=== PATIENT | female | born 1985 | race Caucasian/White ===

== ENCOUNTER 2017-07-29 07:26 | Emergency (ER) ==
[2017-07-29 07:31] VITALS: BP 146/95; TEMP 98.6; BMI 36.7
--- NOTE | 2017-07-29 09:03 | ED.PDOC ---
General ED Provider: Dr. ALBERT GRANGER Chief Complaint: Urinary Problem Stated Complaint: urinary symp Time Seen by Physician: 07:30 (seen with nursing staff at all times ) Mode of Arrival: Walk-In Information Source: Patient Exam Limitations: No limitations Primary Care Provider: MARIE GRAY Nursing and Triage Documentation Reviewed and Agree: Yes Reviewed sepsis parameters & appropriate labs ordered?: Yes System Inflammatory Response Syndrome: Not Applicable Sepsis Protocol: For patient's 13 years and over: Temp is 96.8 and below OR 101 and greater Pulse >90 BPM Resp >20/minute Acutely Altered Mental Status Are patient's symptoms suggestive of a new infection, such as: -Pneumonia -Skin, Soft Tissue -Endocarditis -UTI -Bone, Joint Infection -Implantable Device -Acute Abdominal Infection -Wound Infection -Meningitis -Blood Stream Catheter Infection -Unknown System Inflammatory Response Syndrome: Not Applicable Complaint Exam - Complaint/Exam Patient Complains of: Reports: Dysuria Onset/Duration: 2 days on her period Symptoms Are: Resolved Timing: Intermittent Episodes of Voiding Over Last 12 Hours: 3 Initial Severity: Moderate Current Severity: None Location of Pain: Reports: Suprapubic Character: Reports: Dull, Dark urine Aggravating: Reports: Urination Alleviating: Reports: None Associated Signs and Symptoms: Reports: Dysuria. Denies: Diaphoresis, Back pain , Fever, Hematuria, Constipation, Blood in stool, Rectal pain, Appetite change, Nausea, Vomiting, Decreased urine output, Increased urine frequency, Increased thirst, Decreased activity, Lethargy, Abdominal Pain, Bubble bath use, Vaginal bleeding, Vaginal discharge, Genital swelling, Genital blisters, Retained foreign body Ectopic Risk Factors: Reports: None Ovarian Torsion Risk Factors: Reports: Reproductive age Differential Diagnoses: UTI Review of Systems - Review Of Systems Constitutional: Reports: No symptoms Eyes: Reports: No symptoms Ears, Nose, Mouth, Throat: Reports: No symptoms Respiratory: Reports: No symptoms Cardiac: Reports: No symptoms GI: Reports: No symptoms : Reports: Dysuria, Frequency Musculoskeletal: Reports: No symptoms Skin: Reports: No symptoms Neurological: Reports: No symptoms Endocrine: Reports: No symptoms Hematologic/Lymphatic: Reports: No symptoms All Other Systems: Reviewed and Negative Past Medical History - Past Medical History Previously Healthy: Yes Endocrine: Reports: None Cardiovascular: Reports: None Respiratory: Reports: None Hematological: Reports: None Gastrointestinal: Reports: None Genitourinary: Reports: Other (Acute renal failure from Ibuprufen. 3 year ago) Neuro/Psych: Reports: Seizure Musculoskeletal: Reports: None Cancer: Reports: None Last Menstrual Period: end june - Surgical History General Surgical History: Reports: Tubal ligation (2010), Tonsillectomy (1989) - Family History Family History: Reports: None - Social History Smoking Status: Current every day smoker, Heavy tobacco smoker Hx Substance Use: No Alcohol Screening: None Physical Exam - Physical Exam Appearance: Well-appearing, No pain distress, Well-nourished Eyes: GOLDEN, EOMI, Conjunctiva clear ENT: Ears normal, Nose normal, Oropharynx normal Respiratory: Airway patent, Breath sounds clear, Breath sounds equal, Respirations nonlabored Cardiovascular: RRR, Pulses normal, No rub, No murmur GI/: Soft, Nontender, No masses, Bowel sounds normal, No Organomegaly Musculoskeletal: Normal strength, ROM intact, No edema, No calf tenderness Skin: Warm, Dry, Normal color Neurological: Sensation intact, Motor intact, Reflexes intact, Cranial nerves intact, Alert, Oriented Psychiatric: Affect appropriate, Mood appropriate Critical Care Note - Critical Care Note Total Time (mins): 0 Course - Course Hematology/Chemistry: 07/29/17 08:20 07/29/17 08:20 Orders, Labs, Meds: Lab Review 07/29/17 07/29/17 07/29/17 07:50 08:20 08:20 WBC 7.38 RBC 4.85 Hgb 13.0 Hct 39.3 MCV 81.0 MCH 26.8 L MCHC 33.1 RDW Coeff of Yennifer 12.9 Plt Count 251 Immature Gran % (Auto) 0.4 Neut % (Auto) 71.3 Lymph % (Auto) 22.6 [place] % (Auto) 4.6 Eos % (Auto) 0.8 Baso % (Auto) 0.3 Immature Gran # (Auto) 0.0 Neut # 5.3 Lymph # 1.7 [place]ard # 0.3 L Eos # 0.1 Baso # 0.0 Sodium 136 Potassium 3.5 Chloride 98 Carbon Dioxide 27 Anion Gap 14.5 BUN 11 Creatinine 0.80 Estimated GFR (MDRD) 83.00 BUN/Creatinine Ratio 13.75 Glucose 92 Calcium 9.7 Total Bilirubin 0.9 AST 159 H ALT 265 H Alkaline Phosphatase 138 H Total Protein 7.7 Albumin 3.7 Globulin 4.0 Albumin/Globulin Ratio 0.93 Urine Color Yellow Urine Clarity Clear Urine pH 6.5 Ur Specific Sunshine 1.015 Urine Protein 2+ Urine Glucose (UA) Negative Urine Ketones Trace Urine Blood 2+ Urine Nitrite Negative Urine Bilirubin 1+ Urine Urobilinogen 1.0 Ur Leukocyte Esterase 1+ Urine Microscopic RBC 10-20 Urine Microscopic WBC 5-10 Ur Squamous Epith Cells 20-30 Urine Bacteria 1+ Urine Mucus Trace Orders Category Date Time Status CBC W/ AUTO DIFF Stat LAB 07/29/17 08:20 Completed COMPREHENSIVE METABOLIC PANEL Stat LAB 07/29/17 08:20 Completed URINALYSIS C & S IF INDICATED Stat LAB 07/29/17 07:50 Completed URINE CULTURE Stat LAB 07/29/17 07:50 Received Vital Signs: Temp Pulse Resp BP Pulse Ox 07/29/17 07:26 98.6 F 123 H 20 146/95 H 96 Departure - Departure Time of Disposition: 09:03 (wit nuse at beside we discussed epaet UA) Disposition: HOME SELF-CARE Discharge Problem: Urinary symptoms, Abnormal liver function test Instructions: Urinary Tract Infection in Women (ED) Condition: Good Pt referred to PMD for follow-up: Yes Additional Instructions: Please call your Family Physician as soon as possible to schedule a follow-up appointment. your liver function tests are abnormal please see your doctor for follow up a hepatitis screen has been ordered please get results from your doctor Allergies/Adverse Reactions: Allergies azithromycin [From Zithromax] Adverse Reaction (Verified 07/29/17 07:34) cefaclor [From Ceclor] Adverse Reaction (Verified 07/29/17 07:34) codeine [From Tylenol-Codeine #3] Adverse Reaction (Verified 07/29/17 07:34) ketorolac [From Toradol] Adverse Reaction (Verified 07/29/17 07:34) tramadol Adverse Reaction (Verified 07/29/17 07:34) Home Medications: Ambulatory Orders Gabapentin 300 mg PO TID 07/29/17 Naproxen 500 mg PO BID 07/29/17
== END 2017-07-29 09:34 | disposition home or self-care (01) ==
LOC: ED 07:26
DX: R74.8 Abnormal levels of other serum enzymes (principal); R30.0 Dysuria; R10.33 Periumbilical pain; F17.210 Nicotine dependence, cigarettes, uncomplicated
CPT/HCPCS: 36415; 80053; 80074; 81001; 85025; 87086; 99283

== ENCOUNTER 2017-12-30 13:43 | Emergency (ER) | payer MEDICAID, OTHER ==
[2017-12-30 13:55] VITALS: BP 120/60; TEMP 97.5; BMI 32.8
--- NOTE | 2017-12-30 14:15 | ED.PDOC ---
General ED Provider: Dr. ALBERT GRANGER Chief Complaint: Weakness Mode of Arrival: Walk-In Information Source: Patient Primary Care Provider: MARIE GRAY Sepsis Protocol: For patient's 13 years and over: Temp is 96.8 and below OR 101 and greater Pulse >90 BPM Resp >20/minute Acutely Altered Mental Status Are patient's symptoms suggestive of a new infection, such as: -Pneumonia -Skin, Soft Tissue -Endocarditis -UTI -Bone, Joint Infection -Implantable Device -Acute Abdominal Infection -Wound Infection -Meningitis -Blood Stream Catheter Infection -Unknown Past Medical History - Past Medical History Previously Healthy: Yes Endocrine: Reports: None Cardiovascular: Reports: None Respiratory: Reports: None Hematological: Reports: None Gastrointestinal: Reports: None Genitourinary: Reports: Other (Acute renal failure from Ibuprufen. 3 year ago) Neuro/Psych: Reports: Seizure Musculoskeletal: Reports: None Cancer: Reports: None Last Menstrual Period: 3 WEEKS - Surgical History General Surgical History: Reports: Tubal ligation (2010), Tonsillectomy (1989) - Family History Family History: Reports: None - Social History Smoking Status: Current every day smoker, Light tobacco smoker Hx Substance Use: No Alcohol Screening: None - Immunizations Tetanus Shot up to Date: Yes Course - Course Vital Signs: Temp Pulse Resp BP Pulse Ox 12/30/17 13:47 97.5 F L 106 H 20 120/60 95 Departure - Departure Allergies/Adverse Reactions: Allergies azithromycin [From Zithromax] Adverse Reaction (Verified 12/30/17 13:45) cefaclor [From Ceclor] Adverse Reaction (Verified 12/30/17 13:45) codeine [From Tylenol-Codeine #3] Adverse Reaction (Verified 12/30/17 13:45) ketorolac [From Toradol] Adverse Reaction (Verified 12/30/17 13:45) tramadol Adverse Reaction (Verified 12/30/17 13:45) Home Medications: Ambulatory Orders Gabapentin 300 mg PO TID 07/29/17
[2017-12-30] MEDS ORDERED: SODIUM CHLORIDE 1,000 ML IV STA (14:26)
--- NOTE | 2017-12-30 15:27 | ED.PDOC ---
General ED Provider: Dr. ALBERT GRANGER Chief Complaint: Weakness Stated Complaint: weakness meth abuse Time Seen by Physician: 13:49 (admitts absuing meth seen with escobar [facility] STUDENT IN [employer]) Mode of Arrival: Walk-In Information Source: Patient Exam Limitations: No limitations Primary Care Provider: MARIE GRAY Nursing and Triage Documentation Reviewed and Agree: Yes Reviewed sepsis parameters & appropriate labs ordered?: Yes System Inflammatory Response Syndrome: Not Applicable Sepsis Protocol: For patient's 13 years and over: Temp is 96.8 and below OR 101 and greater Pulse >90 BPM Resp >20/minute Acutely Altered Mental Status Are patient's symptoms suggestive of a new infection, such as: -Pneumonia -Skin, Soft Tissue -Endocarditis -UTI -Bone, Joint Infection -Implantable Device -Acute Abdominal Infection -Wound Infection -Meningitis -Blood Stream Catheter Infection -Unknown Neurological Complaint Exam - Weakness Complaint/Exam Last Known Well: 1 DAY HAS NOT DRANK OR EATEN MUCH SHE STATED Onset: Gradual Duration: 2 Symptoms Are: Still present Timing: Constant Episodes Lasting: Hours Initial Severity: Mild Current Severity: Mild Character: Reports: Weak Aggravating: Reports: None Alleviating: Reports: None Associated Signs and Symptoms: Denies: Nausea, Vomiting, Diaphoresis, Tinnitus, Chest pain, Short of air, Palpitations, Unsteady gait, GI blood loss, Visual changes, Decreased oral intake, Change in medication, Change in diet, OTC meds, Loss of balance Cardiac Risk Factors: Reports: None CVA Risk Factors: Reports: None Related Surgical History: Reports: None JVD Present: No Carotid Bruit Present: No Glascow Coma Scale (see protocol): 15 Nystagmus Present: No Gag Reflex Present: Yes Meningeal Signs Positive: No Focal Weakness: Present: None Focal Sensory Loss: Present: None Gait: Normal Tqhaet-fl-Asal: Normal Findings Babinski Sign: Negative Right, Negative Left Differential Diagnoses: Hypovolemia, Metabolic abnormalities Quality Indicators for Cardiac Chest Pain: EKG in 10min. Quality Indicators for AMI: EKG in 10min. Quality Indicator For Non-Traumatic Chest Pain/Syncope: EKG Performed Review of Systems - Review Of Systems Constitutional: Reports: Malaise, Weakness Eyes: Reports: No symptoms Ears, Nose, Mouth, Throat: Reports: No symptoms Respiratory: Reports: No symptoms Cardiac: Reports: No symptoms GI: Reports: No symptoms : Reports: No symptoms Musculoskeletal: Reports: No symptoms Skin: Reports: No symptoms Neurological: Reports: No symptoms Endocrine: Reports: No symptoms Hematologic/Lymphatic: Reports: No symptoms All Other Systems: Reviewed and Negative Past Medical History - Past Medical History Previously Healthy: Yes Endocrine: Reports: None Cardiovascular: Reports: None Respiratory: Reports: None Hematological: Reports: None Gastrointestinal: Reports: None Genitourinary: Reports: Other (Acute renal failure from Ibuprufen. 3 year ago) Neuro/Psych: Reports: Seizure Musculoskeletal: Reports: None Cancer: Reports: None Last Menstrual Period: 3 WEEKS - Surgical History General Surgical History: Reports: Tubal ligation (2010), Tonsillectomy (1989) - Family History Family History: Reports: None - Social History Smoking Status: Current every day smoker, Light tobacco smoker Hx Substance Use: No Alcohol Screening: None - Immunizations Tetanus Shot up to Date: Yes Physical Exam - Physical Exam Appearance: Well-appearing, No pain distress, Well-nourished Eyes: GOLDEN, EOMI, Conjunctiva clear ENT: Dry mucosa Respiratory: Airway patent, Breath sounds clear, Breath sounds equal, Respirations nonlabored Cardiovascular: RRR, Pulses normal, No rub, No murmur GI/: Soft, Nontender, No masses, Bowel sounds normal, No Organomegaly Musculoskeletal: Normal strength, ROM intact, No edema, No calf tenderness Skin: Warm, Dry, Normal color Neurological: Sensation intact, Motor intact, Reflexes intact, Cranial nerves intact, Alert, Oriented Psychiatric: Affect appropriate, Mood appropriate Critical Care Note - Critical Care Note Total Time (mins): 0 Course - Course Hematology/Chemistry: 12/30/17 14:40 12/30/17 14:40 Orders, Labs, Meds: Lab Review 12/30/17 12/30/17 12/30/17 14:40 14:40 14:50 WBC 7.52 RBC 3.96 L Hgb 10.8 L Hct 32.6 L MCV 82.3 MCH 27.3 MCHC 33.1 RDW Coeff of Yennifer 12.7 Plt Count 293 Immature Gran % (Auto) 0.3 Neut % (Auto) 76.3 Lymph % (Auto) 16.5 [place] % (Auto) 4.9 Eos % (Auto) 1.9 Baso % (Auto) 0.1 Immature Gran # (Auto) 0.0 Neut # (Auto) 5.7 Lymph # (Auto) 1.2 [place] # (Auto) 0.4 Eos # (Auto) 0.1 Baso # (Auto) 0.0 Sodium 139 Potassium 3.7 Chloride 104 Carbon Dioxide 22 Anion Gap 16.7 BUN 12 Creatinine 0.79 Estimated GFR (MDRD) 84.00 BUN/Creatinine Ratio 15.18 Glucose 86 Calcium 9.5 Total Bilirubin 1.2 AST 30 ALT 32 Alkaline Phosphatase 106 H Total Protein 7.7 Albumin 3.7 Globulin 4.0 Albumin/Globulin Ratio 0.93 Urine Color Urine Clarity Urine pH Ur Specific [place] Urine Protein Urine Glucose (UA) Urine Ketones Urine Blood Urine Nitrite Urine Bilirubin Urine Urobilinogen Ur Leukocyte Esterase Urine Microscopic RBC Urine Microscopic WBC Ur Squamous Epith Cells Amorphous Sediment Urine Bacteria Urine Mucus Urine Opiates Screen Negative Ur Oxycodone Screen Negative Urine Methadone Screen Negative Ur Propoxyphene Screen Negative Ur Barbiturates Screen Negative U Tricyclic Antidepress Negative Ur Phencyclidine Scrn Negative Ur Amphetamine Screen Positive U Methamphetamines Scrn Positive U Benzodiazepines Scrn Negative Urine Cocaine Screen Negative U Cannabinoids Screen Negative 12/30/17 14:50 WBC RBC Hgb Hct MCV MCH MCHC RDW Coeff of Yennifer Plt Count Immature Gran % (Auto) Neut % (Auto) Lymph % (Auto) [place] % (Auto) Eos % (Auto) Baso % (Auto) Immature Gran # (Auto) Neut # (Auto) Lymph # (Auto) [place] # (Auto) Eos # (Auto) Baso # (Auto) Sodium Potassium Chloride Carbon Dioxide Anion Gap BUN Creatinine Estimated GFR (MDRD) BUN/Creatinine Ratio Glucose Calcium Total Bilirubin AST ALT Alkaline Phosphatase Total Protein Albumin Globulin Albumin/Globulin Ratio Urine Color Yellow Urine Clarity Cloudy Urine pH 6.5 Ur Specific [place] 1.020 Urine Protein 1+ Urine Glucose (UA) Negative Urine Ketones 3+ Urine Blood Trace-intact Urine Nitrite Negative Urine Bilirubin 2+ Urine Urobilinogen 1.0 Ur Leukocyte Esterase 1+ Urine Microscopic RBC 2-5 Urine Microscopic WBC 10-20 Ur Squamous Epith Cells 10-20 Amorphous Sediment 1+ Urine Bacteria 1+ Urine Mucus 3+ Urine Opiates Screen Ur Oxycodone Screen Urine Methadone Screen Ur Propoxyphene Screen Ur Barbiturates Screen U Tricyclic Antidepress Ur Phencyclidine Scrn Ur Amphetamine Screen U Methamphetamines Scrn U Benzodiazepines Scrn Urine Cocaine Screen U Cannabinoids Screen Orders Category Date Time Status CBC W/ AUTO DIFF Stat LAB 12/30/17 14:40 Completed COMPREHENSIVE METABOLIC PANEL Stat LAB 12/30/17 14:40 Completed DRUG SCREEN (RAPID FOR ED) [DRUG SCREEN, URINE, RAPID] LAB 12/30/17 14:50 Completed Stat URINALYSIS C & S IF INDICATED Stat LAB 12/30/17 14:50 Completed URINE CULTURE Stat LAB 12/30/17 14:50 Received Sodium Chloride 0.9% [Sodium Chloride] 1,000 ml MEDS 12/30/17 14:26 Active IV BOLUS Medications Discontinued Medications Generic Name Dose Route Start Last Admin Trade Name Freq PRN Reason Stop Dose Admin Sodium Chloride 1,000 mls @ 1,000 mls/hr 12/30/17 14:26 Sodium Chloride IV 12/30/17 15:25 BOLUS STA Vital Signs: Temp Pulse Resp BP Pulse Ox 12/30/17 13:47 97.5 F L 106 H 20 120/60 95 Departure - Departure Time of Disposition: 15:28 Disposition: HOME SELF-CARE Discharge Problem: Dehydration Instructions: Dehydration (ED) Condition: Good Pt referred to PMD for follow-up: Yes IPMP verified?: No Additional Instructions: Please call your Family Physician as soon as possible to schedule a follow-up appointment. Allergies/Adverse Reactions: Allergies azithromycin [From Zithromax] Adverse Reaction (Verified 12/30/17 13:45) cefaclor [From Ceclor] Adverse Reaction (Verified 12/30/17 13:45) codeine [From Tylenol-Codeine #3] Adverse Reaction (Verified 12/30/17 13:45) ketorolac [From Toradol] Adverse Reaction (Verified 12/30/17 13:45) tramadol Adverse Reaction (Verified 12/30/17 13:45) Home Medications: Ambulatory Orders Gabapentin 300 mg PO TID 07/29/17 Disposition Discussed With: Patient
== END 2017-12-30 17:20 | disposition home or self-care (01) ==
LOC: ED 13:43
DX: E86.0 Dehydration (principal); R53.1 Weakness; F17.210 Nicotine dependence, cigarettes, uncomplicated
CPT/HCPCS: 36415; 80053; 80306; 81001; 85025; 87086; 96360; 99283